=== PATIENT | male | born 1980 ===

== ENCOUNTER 2016-09-13 20:18 | Emergency (ER) | payer BC ==
[2016-09-13 20:18] VITALS: BMI 28.5
[2016-09-13 20:36] VITALS: BP 138/93; PULSE 114; RESP 16; TEMP 101.6; O2SAT 93
[2016-09-13] MEDS ORDERED: Albuterol-Ipratrop 3 mg / 0.5 (3 ml) UD IH STA (20:52)
[2016-09-13] MEDS ORDERED: Albuterol-Ipratrop 3 mg / 0.5 (3 ml) UD ONE (20:52)
--- NOTE | 2016-09-13 20:55 | ED PDOC ---
HPI: CCC, URI, Sore Throat Time Seen by Provider: 09/13/16 20:47 Chief Complaint (Nursing): Chest Pain History Per: Patient (Nonproductive cough assoc with fever x 2 days. Chest pain when coughing. No SOB. No leg pain.) Onset/Duration Of Symptoms: Days (2) Current Symptoms Are (Timing): Still Present Associated Symptoms: Fever, Chills, Cough. denies: Sputum Severity: Mild Past Medical History Vital Signs: Last Vital Signs Temp 101.6 F H 09/13/16 20:33 Pulse 114 H 09/13/16 20:33 Resp 16 09/13/16 20:33 BP 138/93 H 09/13/16 20:33 Pulse Ox 93 L 09/13/16 20:56 - Medical History PMH: HTN - Family History Family History: States: Unknown Family Hx - Home Medications Home Medications: Ambulatory Orders Medication Instructions Recorded Albuterol HFA [Ventolin HFA 90 2 puff IH Q4H #1 puff 09/13/16 mcg/actuation (8 g)] Azithromycin [Zithromax] 250 mg PO DAILY #6 tab 09/13/16 - Allergies Allergies/Adverse Reactions: Allergies Allergy/AdvReac Type Severity Reaction Status Date / Time shrimp Allergy ANAPHYLAXIS Verified 09/13/16 20:33 Review of Systems Constitutional: Positive for: Fever, Chills Respiratory: Positive for: Cough. Negative for: Shortness of Breath, Sputum Gastrointestinal: Positive for: Nausea Physical Exam - Physical Exam Appears: Positive for: Non-toxic, No Acute Distress Skin: Positive for: Normal Color, Warm, DRY Cardiovascular/Chest: Positive for: Regular Rate, Rhythm Respiratory: Positive for: Rhonchi. Negative for: Wheezing, Respiratory Distress Gastrointestinal/Abdominal: Positive for: Bowel Sounds, Soft. Negative for: Tenderness Extremity: Positive for: Normal ROM. Negative for: Calf Tenderness, Swelling Neurologic/Psych: Positive for: Alert, Oriented - Laboratory Results Result Diagrams: 09/13/16 21:15 09/13/16 21:15 - ECG O2 Sat by Pulse Oximetry: 93 Disposition - Clinical Impression Clinical Impression: Bronchitis - Patient ED Disposition Is Patient to be Admitted: No Counseled Patient/Family Regarding: Studies Performed, Diagnosis, Need For Followup, Rx Given - Disposition Referrals: [facility] [Outside] Disposition: Routine/Home Disposition Time: 22:10 Condition: FAIR Prescriptions: Albuterol HFA [Ventolin HFA 90 mcg/actuation (8 g)] 2 puff IH Q4H #1 puff Azithromycin [Zithromax] 250 mg PO DAILY #6 tab Instructions: Acute Bronchitis (ED)
[2016-09-13 21:40] LABS: BASO % 0.3 % (0.0-2.0); EOS # 0.1 K/uL (0.0-0.7); EOS % 1.3 % (0.0-4.0); HEMATOCRIT 45.1 % (35.0-51.0); LYMPH # 1.3 K/uL (1.0-4.3); LYMPH % 15.5 % (20.0-40.0); MEAN CELL VOLUME 77.9 fl (80.0-94.0); MEAN CORPUSCULAR HEMOGLOBIN 25.6 pg (27.0-31.0); MEAN CORPUSCULAR HGB CONC 32.9 g/dL (33.0-37.0); MEAN PLATELET VOLUME 8.1 fl (7.2-11.7); MONO % 11.8 % (0.0-10.0); NEUT # 5.9 K/uL (1.8-7.0); NEUT % 71.1 % (50.0-75.0); NRBC % 0.3 % (0.0-0.0); RED CELL DISTRIBUTION WIDTH 13.2 % (11.5-14.5); WHITE BLOOD COUNT 8.4 K/uL (4.8-10.8)
[2016-09-13 21:57] LABS: ALB/GLOB RATIO 1.1 (1.0-2.1); ALKALINE PHOSPHATASE 70 U/L (38-126); ALT/SGPT 49 U/L (21-72); AST/SGOT 45 U/L (17-59); BILIRUBIN,TOTAL 0.5 mg/dl (0.2-1.3); BLOOD UREA NITROGEN 14 mg/dl (9-20); CARBON DIOXIDE 27 mmol/L (22-30); CHLORIDE 99 mmol/L (98-107); GFR AFRICAN-AMERICAN > 60; GLUCOSE,RANDOM 120 mg/dL (75-110); POTASSIUM 3.9 MMOL/L (3.6-5.0); SODIUM 135 mmol/l (132-148); TOTAL PROTEIN 8.2 G/DL (6.3-8.2)
--- NOTE | 2016-09-14 10:38 | RAD ---
HISTORY: cough COMPARISON: None available. TECHNIQUE: Chest PA and lateral FINDINGS: Examination limited by habitus. LUNGS: No focal consolidation. Please note that chest x-ray has limited sensitivity for the detection of pulmonary masses. PLEURA: No significant pleural effusion identified. No definite pneumothorax . CARDIOVASCULAR: Heart size appears within normal limits. OSSEOUS STRUCTURES: No acute osseous abnormality identified. VISUALIZED UPPER ABDOMEN: Unremarkable. OTHER FINDINGS: None. IMPRESSION: No focal consolidation, significant pleural effusion, or definite pneumothorax identified.
== END 2016-09-13 22:24 | disposition home or self-care (01) ==
LOC: H.ER 20:18
DX: J40 Bronchitis, not specified as acute or chronic (principal); R05 Cough; R07.9 Chest pain, unspecified; I10 Essential (primary) hypertension